=== PATIENT | male | born 1955 | race Caucasian/White ===

== ENCOUNTER 2017-11-17 10:37 | Inpatient (IN) | payer OTHER ==
[2017-11-17] MEDS: SODIUM CHLORIDE 0.9% 1L BAG IV* (11:13)
[2017-11-17 11:22] LABS: ADD MAN DIFF? NO
[2017-11-17 11:25] LABS: WHITE BLOOD COUNT 10.7 10^3/ul (4.8-10.8)
[2017-11-17 11:25] LABS: BASOPHILS % 0.1 % (0.0-2.0); HEMATOCRIT 43.6 % (42.0-52.0); HEMOGLOBIN 14.4 g/dl (14.0-18.0); IMMATURE GRANS #M 0.03 10^3/ul; IMMATURE GRANS % (M) 0.3 %; LYMPHOCYTES # 0.7 10^3/ul (0.8-2.9); LYMPHOCYTES % 6.1 % (15.0-51.0); MEAN CORPUSCULAR HEMOGLOBIN 30.6 pg (29.0-33.0); MEAN CORPUSCULAR VOLUME 92.8 fl (82.0-101.0); MEAN PLATELET VOLUME 11.2 fl (7.4-10.4); MONOCYTE # 0.4 10^3/ul (0.3-0.9); NEUTROPHIL # 9.6 10^3/ul (1.6-7.5); NEUTROPHILS % 89.5 % (39.0-77.0); PLATELET COUNT 169 10^3/UL (140-415); RED CELL DISTRIBUTION WIDTH 14.5 % (11.5-14.5)
[2017-11-17] MEDS: SOD CHLORIDE 0.9% 1,000 ML IV ×3 (11:28→17:26)
[2017-11-17 11:48] LABS: LACTIC ACID 2.3 mmol/L (0.5-2.0)
[2017-11-17 11:48] LABS: PROTIME 13.3 Sec (11.9-14.9)
[2017-11-17 11:49] LABS: PARTIAL THROMBOPLASTIN TIME 23.7 Sec (25.0-35.0)
[2017-11-17 11:54] LABS: ALANINE AMINOTRANSFERASE 41 IU/L (13-69); ALBUMIN 4.1 g/dl (3.3-4.9); ALBUMIN/GLOBULIN RATIO 1.32; ALKALINE PHOSPHATASE 67 IU/L (42-121); ANION GAP 15 (8-16); ASPARTATE AMINO TRANSFERASE 129 IU/L (15-46); BILIRUBIN,INDIRECT 1.4 mg/dl (0-1.1); BILIRUBIN,TOTAL 1.4 mg/dl (0.2-1.3); BLOOD UREA NITROGEN 29 mg/dl (7-20); CALCIUM 9.2 mg/dl (8.4-10.2); CARBON DIOXIDE 29 mmol/L (21-31); CHLORIDE 108 mmol/L (97-110); CREATININE 0.72 mg/dl (0.61-1.24); GLUCOSE 130 mg/dl (70-220); POTASSIUM 4.1 mmol/L (3.5-5.1); SODIUM 148 mmol/L (135-144); TOTAL PROTEIN 7.2 g/dl (6.1-8.1)
[2017-11-17 12:01] LABS: ADD UMIC NO; UR ASCORBIC ACID NEGATIVE (NEGATIVE); UR BILIRUBIN (Dip) NEGATIVE (NEGATIVE); UR BLOOD (Dip) NEGATIVE (NEGATIVE); UR CLARITY CLEAR (CLEAR); UR COLOR YELLOW (YELLOW); UR GLUCOSE (Dip) NEGATIVE (NEGATIVE); UR KETONES (Dip) 1+ mg/dL (NEGATIVE); UR LEUKOCYTE ESTERASE (Dip) NEGATIVE Leu/ul (NEGATIVE); UR NITRITE (Dip) NEGATIVE (NEGATIVE); UR SPECIFIC GRAVITY (Dip) 1.026 (1.003-1.030); UR TOTAL PROTEIN (Dip) NEGATIVE (NEGATIVE); UR UROBILINOGEN (Dip) 1+ mg/dL (NEGATIVE)
[2017-11-17 12:05] LABS: TROPONIN-I < 0.010 ng/ml (0.000-0.120)
[2017-11-17 12:06] LABS: ACETAMINOPHEN < 10.0 ug/ml (10.0-30.0); SALICYLATE < 1.0 mg/dl (5.0-30.0)
[2017-11-17 12:07] LABS: ETHANOL < 10.0 mg/dl
[2017-11-17] MEDS: CEFEPIME 2GM/50 ML (PMX) 50 ML IVPB (12:16)
[2017-11-17] MEDS: DIPHTH/TET/ACEL PERTUSS (ADULT) 0.5 ML VIAL IM* (12:17)
[2017-11-17] MEDS: BACITRACIN 0.9 GM OINT TOP (12:17)
[2017-11-17 12:22] LABS: AMPHETAMINE/METHAMPHETAMINE Negative (NEGATIVE); BARBITURATES Negative (NEGATIVE); BENZODIAZEPINES Negative (NEGATIVE); CANNABINOIDS Negative (NEGATIVE); COCAINE Negative (NEGATIVE); OPIATES Negative (NEGATIVE)
[2017-11-17 12:45] LABS: CREATINE KINASE 4697 IU/L (23-200)
[2017-11-17] MEDS: VANCOMYCIN 1 GM (PMX) 250 ML IVPB (13:13)
[2017-11-17] MEDS ORDERED: ONDANSETRON 4 MG INJ IV ×2 (13:30→15:00)
[2017-11-17] MEDS ORDERED: ACETAMINOPHEN 325 MG TAB PO ×2 (13:30→15:00)
[2017-11-17 13:52] LABS: LACTIC ACID 3.4 mmol/L (0.5-2.0)
[2017-11-17] MEDS ORDERED: NA PHOSPHATE/BIPHOS 133 ML ENEMA PR (15:00)
[2017-11-17] MEDS ORDERED: hydrALAzine 20 MG INJ IV (15:00)
[2017-11-17] MEDS ORDERED: NACL 0.9% 3 ML SYG IV (15:00)
[2017-11-17] MEDS ORDERED: ALBUTEROL/IPRATROPIUM (NEB) 3 ML AMP HHN (15:00)
[2017-11-17] MEDS ORDERED: NITROGLYCERIN (SL) 0.4 MG TAB SL (15:00)
[2017-11-17] MEDS ORDERED: morphine 2 MG INJ IV (15:00)
[2017-11-17 17:04] LABS: LACTIC ACID 1.9 mmol/L (0.5-2.0)
[2017-11-17 17:33] LABS: FREE T4 (FREE THYROXINE) 1.32 ng/dl (0.78-2.44)
[2017-11-17 19:28] LABS: LACTIC ACID 1.4 mmol/L (0.5-2.0)
[2017-11-17] MEDS: CARBIDOPA/LEVODOPA 50-200 (CR) TAB PO (20:40)
[2017-11-17] MEDS: DIPYRIDAMOLE/ASPIRIN (SR) CAP PO (20:40)
[2017-11-17] MEDS: HEPARIN 5,000 UNIT/0.5 ML VIAL SC (20:47)
[2017-11-17 21:09] LABS: LACTIC ACID 1.1 mmol/L (0.5-2.0)
[2017-11-17 23:39] LABS: LACTIC ACID 0.9 mmol/L (0.5-2.0)
[2017-11-17] MEDS ORDERED: GLUCOSE GEL 15 GRAM TUBE BUCCAL (23:45)
[2017-11-17] MEDS ORDERED: DEXTROSE 50% 50 ML SYRINGE IV ×2 (23:45)
[2017-11-17] MEDS ORDERED: GLUCAGON 1 MG INJ IM (23:45)
[2017-11-17] MEDS ORDERED: GLUCOSE GEL 15 GRAM TUBE PO ×2 (23:45)
[2017-11-18] MEDS: DEXTROSE 5%-0.45% NACL 1,000 ML IV ×3 (00:30→19:30)
[2017-11-18] MEDS: INSULIN ASPART [NOVOLOG] 3 ML PEN SC ×6 (00:33→21:00)
[2017-11-18] MEDS: ACCU-CHEK XX (02:50)
[2017-11-18 04:41] LABS: LACTIC ACID 1.7 mmol/L (0.5-2.0)
[2017-11-18 06:44] LABS: ADD MAN DIFF? NO
[2017-11-18 06:48] LABS: WHITE BLOOD COUNT 8.3 10^3/ul (4.8-10.8)
[2017-11-18 06:48] LABS: BASOPHILS % 0.4 % (0.0-2.0); EOSINOPHILS % 0.1 % (0.0-7.0); HEMATOCRIT 38.7 % (42.0-52.0); HEMOGLOBIN 12.8 g/dl (14.0-18.0); IMMATURE GRANS #M 0.02 10^3/ul; IMMATURE GRANS % (M) 0.2 %; LYMPHOCYTES # 0.9 10^3/ul (0.8-2.9); LYMPHOCYTES % 10.8 % (15.0-51.0); MEAN CORPUSCULAR HEMOGLOBIN 31.5 pg (29.0-33.0); MEAN CORPUSCULAR HGB CONC 33.1 g/dl (32.0-37.0); MEAN CORPUSCULAR VOLUME 95.3 fl (82.0-101.0); MEAN PLATELET VOLUME 11.4 fl (7.4-10.4); MONOCYTE # 0.4 10^3/ul (0.3-0.9); MONOCYTES % 4.2 % (0.0-11.0); NEUTROPHILS % 84.3 % (39.0-77.0); PLATELET COUNT 155 10^3/UL (140-415); RED BLOOD COUNT 4.06 10^6/ul (4.70-6.10); RED CELL DISTRIBUTION WIDTH 14.7 % (11.5-14.5)
[2017-11-18 07:05] LABS: LACTIC ACID 1.1 mmol/L (0.5-2.0)
[2017-11-18 07:11] LABS: ANION GAP 9 (8-16); BLOOD UREA NITROGEN 20 mg/dl (7-20); CALCIUM 7.6 mg/dl (8.4-10.2); CARBON DIOXIDE 27 mmol/L (21-31); CHLORIDE 113 mmol/L (97-110); CHOL/HDL RATIO 1.9 RATIO; CREATININE 0.57 mg/dl (0.61-1.24); GLUCOSE 167 mg/dl (70-220); HDL CHOLESTEROL 43 mg/dl (30-78); LDL CHOLESTEROL,CALCULATED 29 mg/dl; PHOSPHORUS 2.6 mg/dl (2.5-4.9); SODIUM 146 mmol/L (135-144); TRIGLYCERIDES 57 mg/dl (0-149)
[2017-11-18 07:11] LABS: CHOLESTEROL 83 mg/dl (100-200)
[2017-11-18 07:34] LABS: CREATINE KINASE 2874 IU/L (23-200)
[2017-11-18 07:48] LABS: HEMOGLOBIN A1C 5.8 % (0-5.9)
[2017-11-18 11:43] LABS: LACTIC ACID 1.4 mmol/L (0.5-2.0)
[2017-11-18] MEDS: DIPYRIDAMOLE/ASPIRIN (SR) CAP PO ×2 (12:11→21:42)
[2017-11-18] MEDS: CARBIDOPA/LEVODOPA 50-200 (CR) TAB PO ×3 (12:11→21:42)
[2017-11-18] MEDS: HEPARIN 5,000 UNIT/0.5 ML VIAL SC ×2 (12:41→21:58)
[2017-11-18] MEDS: MAGNESIUM SULFATE 4 GM/100 ML 100 ML IVPB (14:06)
[2017-11-18] MEDS: POTASSIUM CHLORIDE 100 ML IVPB ×4 (14:06→21:41)
[2017-11-19] MEDS: ACCU-CHEK XX (01:23)
[2017-11-19] MEDS: DEXTROSE 5%-0.45% NACL 1,000 ML IV ×2 (05:32→15:41)
[2017-11-19 06:46] LABS: ADD MAN DIFF? NO
[2017-11-19 06:54] LABS: BASOPHILS % 0.3 % (0.0-2.0); EOSINOPHILS % 0.4 % (0.0-7.0); HEMATOCRIT 38.9 % (42.0-52.0); IMMATURE GRANS #M 0.02 10^3/ul; IMMATURE GRANS % (M) 0.3 %; LYMPHOCYTES # 1.1 10^3/ul (0.8-2.9); LYMPHOCYTES % 14.7 % (15.0-51.0); MEAN CORPUSCULAR HEMOGLOBIN 31.7 pg (29.0-33.0); MEAN CORPUSCULAR HGB CONC 33.4 g/dl (32.0-37.0); MEAN CORPUSCULAR VOLUME 94.9 fl (82.0-101.0); MEAN PLATELET VOLUME 12.2 fl (7.4-10.4); MONOCYTE # 0.3 10^3/ul (0.3-0.9); MONOCYTES % 4.2 % (0.0-11.0); NEUTROPHIL # 5.9 10^3/ul (1.6-7.5); NEUTROPHILS % 80.1 % (39.0-77.0); PLATELET COUNT 144 10^3/UL (140-415); RED CELL DISTRIBUTION WIDTH 14.7 % (11.5-14.5)
[2017-11-19 06:54] LABS: WHITE BLOOD COUNT 7.4 10^3/ul (4.8-10.8)
[2017-11-19] MEDS: Insulin NOVOLOG SS MILD Algorithm (SS with meals and bedtime) SC ×4 (07:25→20:27)
[2017-11-19 07:30] LABS: ANION GAP 10 (8-16); BLOOD UREA NITROGEN 12 mg/dl (7-20); CALCIUM 8.1 mg/dl (8.4-10.2); CARBON DIOXIDE 28 mmol/L (21-31); CHLORIDE 110 mmol/L (97-110); CREATININE 0.48 mg/dl (0.61-1.24); GLUCOSE 131 mg/dl (70-220); POTASSIUM 3.8 mmol/L (3.5-5.1); SODIUM 144 mmol/L (135-144)
[2017-11-19] MEDS: CARBIDOPA/LEVODOPA 50-200 (CR) TAB PO ×3 (08:48→20:22)
[2017-11-19] MEDS: HEPARIN 5,000 UNIT/0.5 ML VIAL SC (09:00)
[2017-11-19] MEDS: DIPYRIDAMOLE/ASPIRIN (SR) CAP PO (09:00)
[2017-11-19] MEDS: HYDROCODONE/APAP (5/325) TAB PO (10:47)
[2017-11-19] MEDS: LORAZEPAM 2 MG INJ IV (15:41)
[2017-11-19 17:54] LABS: CREATINE KINASE 1505 IU/L (23-200)
[2017-11-20] MEDS: ACCU-CHEK XX (02:00)
[2017-11-20] MEDS: DEXTROSE 5%-0.45% NACL 1,000 ML IV ×2 (02:17→12:03)
[2017-11-20 07:24] LABS: ADD MAN DIFF? NO
[2017-11-20] MEDS: Insulin NOVOLOG SS MILD Algorithm (SS with meals and bedtime) SC ×4 (07:25→20:33)
[2017-11-20 07:32] LABS: BASOPHILS % 0.1 % (0.0-2.0); EOSINOPHILS % 0.1 % (0.0-7.0); HEMATOCRIT 40.5 % (42.0-52.0); HEMOGLOBIN 13.4 g/dl (14.0-18.0); LYMPHOCYTES % 9.9 % (15.0-51.0); MEAN CORPUSCULAR HEMOGLOBIN 30.8 pg (29.0-33.0); MEAN CORPUSCULAR HGB CONC 33.1 g/dl (32.0-37.0); MEAN CORPUSCULAR VOLUME 93.1 fl (82.0-101.0); MEAN PLATELET VOLUME 11.7 fl (7.4-10.4); MONOCYTE # 0.4 10^3/ul (0.3-0.9); MONOCYTES % 3.6 % (0.0-11.0); NEUTROPHIL # 8.9 10^3/ul (1.6-7.5); NEUTROPHILS % 85.9 % (39.0-77.0); PLATELET COUNT 166 10^3/UL (140-415); RED BLOOD COUNT 4.35 10^6/ul (4.70-6.10); RED CELL DISTRIBUTION WIDTH 14.1 % (11.5-14.5)
[2017-11-20 07:32] LABS: WHITE BLOOD COUNT 10.4 10^3/ul (4.8-10.8)
[2017-11-20] MEDS: CARBIDOPA/LEVODOPA 50-200 (CR) TAB PO ×3 (07:41→20:23)
[2017-11-20 07:54] LABS: ANION GAP 9 (8-16); BLOOD UREA NITROGEN 4 mg/dl (7-20); CALCIUM 8.3 mg/dl (8.4-10.2); CARBON DIOXIDE 29 mmol/L (21-31); CHLORIDE 107 mmol/L (97-110); CREATININE 0.49 mg/dl (0.61-1.24); GLUCOSE 120 mg/dl (70-220); POTASSIUM 3.4 mmol/L (3.5-5.1); SODIUM 142 mmol/L (135-144)
[2017-11-20] MEDS: MAGNESIUM SULFATE 4 GM/100 ML 100 ML IVPB (10:42)
[2017-11-20] MEDS: POTASSIUM CHLORIDE 20 MEQ POWDER FOR ORAL SOLN PO (10:42)
[2017-11-20 11:46] LABS: CREATINE KINASE 828 IU/L (23-200)
[2017-11-20 11:51] LABS: AMMONIA < 9 umol/l (9-30)
[2017-11-20 12:53] LABS: FOLATE 7.9 ng/ml (2.8-20.0)
[2017-11-20] MEDS ORDERED: morphine LIQ (10 MG/5 ML) CUP PO (17:30)
[2017-11-20 21:47] LABS: RAPID PLASMA REAGIN NONREACTIVE (NR)
[2017-11-21] MEDS: DEXTROSE 5%-0.45% NACL 1,000 ML IV ×2 (00:21→07:26)
[2017-11-21] MEDS: ACCU-CHEK XX (02:15)
[2017-11-21] MEDS: Insulin NOVOLOG SS MILD Algorithm (SS with meals and bedtime) SC ×4 (07:25→20:20)
[2017-11-21] MEDS: DOCUSATE SODIUM 100 MG CAP PO (07:26)
[2017-11-21] MEDS: CARBIDOPA/LEVODOPA 50-200 (CR) TAB PO ×3 (07:26→20:17)
[2017-11-21] MEDS: MAGNESIUM HYDROXIDE 30ML CUP PO (07:26)
[2017-11-21 07:35] LABS: CREATINE KINASE 516 IU/L (23-200)
[2017-11-21 07:40] LABS: ANION GAP 8 (8-16); BLOOD UREA NITROGEN 6 mg/dl (7-20); CALCIUM 8.7 mg/dl (8.4-10.2); CARBON DIOXIDE 32 mmol/L (21-31); CHLORIDE 107 mmol/L (97-110); CREATININE 0.46 mg/dl (0.61-1.24); GLUCOSE 118 mg/dl (70-220); SODIUM 143 mmol/L (135-144)
[2017-11-21 07:41] LABS: MAGNESIUM 1.4 mg/dl (1.7-2.5)
[2017-11-21] MEDS: MAGNESIUM SULFATE 4 GM/100 ML 100 ML IVPB (10:40)
== END 2017-11-21 21:30 | disposition home or self-care (01) | DRG 557 ==
LOC: E/R 10:37 → TEL 13:13
DX: M62.82 Rhabdomyolysis (principal); G93.49 Other encephalopathy; R64 Cachexia; E87.0 Hyperosmolality and hypernatremia; E86.0 Dehydration; Z68.20 Body mass index [BMI] 20.0-20.9, adult; E11.9 Type 2 diabetes mellitus without complications; I10 Essential (primary) hypertension; Z86.73 Personal history of transient ischemic attack (TIA), and cerebral infarction without residual deficits; G20 Parkinson's disease; F02.80 Dementia in other diseases classified elsewhere, unspecified severity, without behavioral disturbance, psychotic disturbance, mood disturbance, and anxiety
CPT/HCPCS: 36415; 70450; 70551; 71045; 80048; 80053; 80061; 80307; 81003; 82140; 82550; 82553; 82607; 82746; 82962; 83036; 83605; 83735; 84100; 84439; 84443; 84484; 85025; 85610; 85730; 86592; 87040; 87086; 90471; 90715; 92526; 92610; 93005; 93306; 93880; 96365; 96375; 97110; 97162; 97166; 97530; 97535; 99291-25

== ENCOUNTER 2018-08-08 04:20 | Inpatient (IN) | payer OTHER ==
[2018-08-08 05:18] LABS: ADD MAN DIFF? NO
[2018-08-08 05:19] LABS: BASOPHILS % 0.1 % (0.0-2.0); EOSINOPHILS % 0.1 % (0.0-7.0); HEMATOCRIT 39.1 % (42.0-52.0); HEMOGLOBIN 12.5 g/dl (14.0-18.0); LYMPHOCYTES # 1.3 10^3/ul (0.8-2.9); LYMPHOCYTES % 15.7 % (15.0-51.0); MEAN CORPUSCULAR HEMOGLOBIN 28.8 pg (29.0-33.0); MEAN CORPUSCULAR VOLUME 90.1 fl (82.0-101.0); MEAN PLATELET VOLUME 11.1 fl (7.4-10.4); MONOCYTE # 0.4 10^3/ul (0.3-0.9); MONOCYTES % 4.9 % (0.0-11.0); NEUTROPHIL # 6.4 10^3/ul (1.6-7.5); PLATELET COUNT 174 10^3/UL (140-415); RED BLOOD COUNT 4.34 10^6/ul (4.70-6.10); RED CELL DISTRIBUTION WIDTH 14.9 % (11.5-14.5)
[2018-08-08] MEDS: SOD CHLORIDE 0.9% 1,000 ML IV ×2 (05:20→05:59)
[2018-08-08 05:37] LABS: CREATINE KINASE 311 IU/L (23-200)
[2018-08-08 05:40] LABS: ALANINE AMINOTRANSFERASE 23 IU/L (13-69); ALBUMIN 3.4 g/dl (3.3-4.9); ALBUMIN/GLOBULIN RATIO 1.25; ALKALINE PHOSPHATASE 100 IU/L (42-121); ANION GAP 9 (5-13); ASPARTATE AMINO TRANSFERASE 20 IU/L (15-46); BLOOD UREA NITROGEN 23 mg/dl (7-20); CALCIUM 9.2 mg/dl (8.4-10.2); CARBON DIOXIDE 23 mmol/L (21-31); CHLORIDE 112 mmol/L (97-110); CREATININE 1.21 mg/dl (0.61-1.24); Estimated GFR > 60 mL/min (>60); GLUCOSE 137 mg/dl (70-220); LIPASE 72 U/L (23-300); POTASSIUM 4.1 mmol/L (3.5-5.1); SODIUM 144 mmol/L (135-144); TOTAL PROTEIN 6.1 g/dl (6.1-8.1)
[2018-08-08 05:50] LABS: TROPONIN-I < 0.012 ng/ml (0.000-0.120)
[2018-08-08 05:59] LABS: ETHANOL < 10.0 mg/dl (0-0)
[2018-08-08] MEDS ORDERED: ALBUTEROL/IPRATROPIUM (NEB) 3 ML AMP HHN (06:30)
[2018-08-08] MEDS ORDERED: ONDANSETRON 4 MG INJ IV (06:30)
[2018-08-08] MEDS ORDERED: NACL 0.9% 3 ML SYG IV (06:30)
[2018-08-08 07:05] LABS: CREATINE KINASE 432 IU/L (23-200)
[2018-08-08] MEDS: SOD CHLORIDE 0.9% 500 ML IV (07:16)
[2018-08-08 07:17] LABS: CK INDEX 2.2; TROPONIN-I < 0.012 ng/ml (0.000-0.120)
[2018-08-08 07:18] LABS: CK-MB 9.36 ng/ml (0.0-2.4)
[2018-08-08 07:30] LABS: ADD UMIC NO; UR ASCORBIC ACID NEGATIVE (NEGATIVE); UR BILIRUBIN (Dip) NEGATIVE (NEGATIVE); UR BLOOD (Dip) NEGATIVE (NEGATIVE); UR CLARITY SLIGHTLY CLOUDY (CLEAR); UR COLOR YELLOW (YELLOW); UR GLUCOSE (Dip) 2+ mg/dL (NEGATIVE); UR KETONES (Dip) TRACE mg/dL (NEGATIVE); UR LEUKOCYTE ESTERASE (Dip) NEGATIVE Leu/ul (NEGATIVE); UR NITRITE (Dip) NEGATIVE (NEGATIVE); UR RBC 1 /HPF (0-5); UR SPECIFIC GRAVITY (Dip) 1.018 (1.003-1.030); UR TOTAL PROTEIN (Dip) NEGATIVE (NEGATIVE); UR UROBILINOGEN (Dip) 1+ mg/dL (NEGATIVE); UR WBC 1 /HPF (0-5)
[2018-08-08] MEDS ORDERED: NORepinephrine 8MG/250 ML (PMX 250 ML IV (07:30)
[2018-08-08] MEDS: metFORMIN 500 MG TAB PO ×2 (08:00→17:29)
[2018-08-08] MEDS: PRAMIPEXOLE 1 MG TAB PO ×3 (08:33→22:03)
[2018-08-08] MEDS: DIPYRIDAMOLE/ASPIRIN (SR) CAP PO ×2 (08:33→22:03)
[2018-08-08] MEDS: GABAPENTIN 300 MG CAP PO ×2 (08:33→22:04)
[2018-08-08] MEDS: BACLOFEN 10 MG TAB PO ×4 (08:34→22:03)
[2018-08-08] MEDS: HEPARIN 5,000 UNIT/1 ML VIAL SC ×2 (08:37→22:24)
[2018-08-08] MEDS: MIDODRINE 5 MG TAB PO ×3 (08:47→17:28)
[2018-08-08] MEDS: BENAZEPRIL 20 MG TAB PO (09:00)
[2018-08-08] MEDS: FUROSEMIDE 20 MG TAB PO (09:00)
[2018-08-08] MEDS: CARBIDOPA/LEVODOPA 50-200 (CR) TAB PO ×3 (09:15→21:00)
[2018-08-08 14:35] LABS: CREATINE KINASE 2162 IU/L (23-200)
[2018-08-08 14:40] LABS: CK INDEX 0.9; TROPONIN-I 0.054 ng/ml (0.000-0.120)
[2018-08-08] MEDS: ATORVASTATIN 40 MG TAB PO (22:04)
[2018-08-09 06:08] LABS: ADD MAN DIFF? NO
[2018-08-09 06:23] LABS: WHITE BLOOD COUNT 9.9 10^3/ul (4.8-10.8)
[2018-08-09 06:23] LABS: BASOPHILS % 0.3 % (0.0-2.0); EOSINOPHILS % 0.3 % (0.0-7.0); HEMATOCRIT 35.8 % (42.0-52.0); LYMPHOCYTES # 1.7 10^3/ul (0.8-2.9); LYMPHOCYTES % 17.3 % (15.0-51.0); MEAN CORPUSCULAR HEMOGLOBIN 29.1 pg (29.0-33.0); MEAN CORPUSCULAR HGB CONC 33.5 g/dl (32.0-37.0); MEAN CORPUSCULAR VOLUME 86.9 fl (82.0-101.0); MEAN PLATELET VOLUME 11.9 fl (7.4-10.4); MONOCYTE # 0.5 10^3/ul (0.3-0.9); MONOCYTES % 4.8 % (0.0-11.0); NEUTROPHIL # 7.6 10^3/ul (1.6-7.5); NEUTROPHILS % 76.9 % (39.0-77.0); PLATELET COUNT 170 10^3/UL (140-415); RED BLOOD COUNT 4.12 10^6/ul (4.70-6.10); RED CELL DISTRIBUTION WIDTH 14.8 % (11.5-14.5)
[2018-08-09 06:45] LABS: ALANINE AMINOTRANSFERASE 18 IU/L (13-69); ALBUMIN 2.7 g/dl (3.3-4.9); ALBUMIN/GLOBULIN RATIO 1.08; ALKALINE PHOSPHATASE 83 IU/L (42-121); ANION GAP 5 (5-13); ASPARTATE AMINO TRANSFERASE 55 IU/L (15-46); BILIRUBIN,INDIRECT 1.1 mg/dl (0-1.1); BILIRUBIN,TOTAL 1.1 mg/dl (0.2-1.3); BLOOD UREA NITROGEN 11 mg/dl (7-20); CALCIUM 8.5 mg/dl (8.4-10.2); CARBON DIOXIDE 26 mmol/L (21-31); CHLORIDE 109 mmol/L (97-110); CHOL/HDL RATIO 3.1 RATIO; CHOLESTEROL 88 mg/dl (100-200); CREATININE 0.51 mg/dl (0.61-1.24); Estimated GFR > 60 mL/min (>60); GLUCOSE 110 mg/dl (70-220); HDL CHOLESTEROL 28 mg/dl (30-78); LDL CHOLESTEROL,CALCULATED 40 mg/dl; MAGNESIUM 1.3 mg/dl (1.7-2.5); POTASSIUM 3.5 mmol/L (3.5-5.1); SODIUM 140 mmol/L (135-144); TOTAL PROTEIN 5.2 g/dl (6.1-8.1); TRIGLYCERIDES 98 mg/dl (0-149)
[2018-08-09 07:13] LABS: HEMOGLOBIN A1C 7.2 % (0-5.9)
[2018-08-09] MEDS: MIDODRINE 5 MG TAB PO ×3 (07:44→17:46)
[2018-08-09] MEDS: PRAMIPEXOLE 1 MG TAB PO ×3 (08:49→21:17)
[2018-08-09] MEDS: DIPYRIDAMOLE/ASPIRIN (SR) CAP PO ×2 (08:49→21:17)
[2018-08-09] MEDS: CARBIDOPA/LEVODOPA 50-200 (CR) TAB PO ×3 (08:51→21:20)
[2018-08-09] MEDS: BACLOFEN 10 MG TAB PO ×4 (08:51→21:17)
[2018-08-09] MEDS: GABAPENTIN 300 MG CAP PO ×2 (08:51→21:17)
[2018-08-09] MEDS: BENAZEPRIL 20 MG TAB PO (08:52)
[2018-08-09] MEDS: FUROSEMIDE 20 MG TAB PO (08:53)
[2018-08-09] MEDS: HEPARIN 5,000 UNIT/1 ML VIAL SC ×2 (08:56→21:44)
[2018-08-09] MEDS: metFORMIN 500 MG TAB PO ×2 (08:57→17:45)
[2018-08-09] MEDS: MAGNESIUM SULFATE 2 GM/50 ML 50 ML IVPB (11:30)
[2018-08-09] MEDS: clonAZEPAM 0.5 MG TAB PO (14:34)
[2018-08-09 17:48] LABS: AMPHETAMINE/METHAMPHETAMINE Negative (NEGATIVE); BARBITURATES Negative (NEGATIVE); BENZODIAZEPINES Negative (NEGATIVE); CANNABINOIDS Negative (NEGATIVE); COCAINE Negative (NEGATIVE); OPIATES Negative (NEGATIVE)
[2018-08-09] MEDS: ATORVASTATIN 40 MG TAB PO (21:17)
[2018-08-10] MEDS: MIDODRINE 5 MG TAB PO ×2 (05:26→21:00)
[2018-08-10] MEDS: metFORMIN 500 MG TAB PO (08:27)
[2018-08-10] MEDS: PRAMIPEXOLE 1 MG TAB PO ×3 (09:03→20:59)
[2018-08-10] MEDS: DIPYRIDAMOLE/ASPIRIN (SR) CAP PO ×2 (09:03→20:59)
[2018-08-10] MEDS: GABAPENTIN 300 MG CAP PO ×2 (09:03→20:59)
[2018-08-10] MEDS: CARBIDOPA/LEVODOPA 50-200 (CR) TAB PO (09:03)
[2018-08-10] MEDS: BENAZEPRIL 20 MG TAB PO (09:04)
[2018-08-10] MEDS: BACLOFEN 10 MG TAB PO ×2 (09:04→20:59)
[2018-08-10] MEDS: FUROSEMIDE 20 MG TAB PO (09:04)
[2018-08-10] MEDS: HEPARIN 5,000 UNIT/1 ML VIAL SC ×2 (09:15→21:07)
[2018-08-10] MEDS ORDERED: DEXTROSE 50% 50 ML SYRINGE IV ×2 (13:00)
[2018-08-10] MEDS ORDERED: GLUCAGON 1 MG INJ IM (13:00)
[2018-08-10] MEDS ORDERED: GLUCOSE GEL 15 GRAM TUBE BUCCAL (13:00)
[2018-08-10] MEDS ORDERED: GLUCOSE GEL 15 GRAM TUBE PO ×2 (13:00)
[2018-08-10] MEDS: SOD CHLORIDE 0.9% 1,000 ML IV (13:31)
[2018-08-10] MEDS: ALBUMIN HUMAN 25% 100 ML IV (13:33)
[2018-08-10] MEDS: DEXAMETHASONE 4 MG/ML 1 ML INJ IV (13:33)
[2018-08-10] MEDS: INSULIN ASPART [NOVOLOG] 3 ML PEN SC (17:42)
[2018-08-10] MEDS: ATORVASTATIN 40 MG TAB PO (20:59)
[2018-08-10] MEDS: INSULIN GLARGINE [LANTus] (100 UNITS/ML) SYG SC (21:06)
[2018-08-11] MEDS: SOD CHLORIDE 0.9% 1,000 ML IV ×2 (00:30→13:16)
[2018-08-11] MEDS: INSULIN ASPART [NOVOLOG] 3 ML PEN SC ×3 (08:09→17:22)
[2018-08-11] MEDS: GABAPENTIN 300 MG CAP PO ×2 (08:30→20:28)
[2018-08-11] MEDS: BACLOFEN 10 MG TAB PO ×2 (08:31→20:28)
[2018-08-11] MEDS: PRAMIPEXOLE 1 MG TAB PO ×3 (08:31→20:28)
[2018-08-11] MEDS: MIDODRINE 5 MG TAB PO (08:31)
[2018-08-11] MEDS: DIPYRIDAMOLE/ASPIRIN (SR) CAP PO ×2 (08:31→20:28)
[2018-08-11] MEDS: BENAZEPRIL 20 MG TAB PO (08:31)
[2018-08-11] MEDS: HEPARIN 5,000 UNIT/1 ML VIAL SC ×2 (08:53→20:46)
[2018-08-11 12:02] LABS: MAGNESIUM 1.2 mg/dl (1.7-2.5)
[2018-08-11] MEDS: MAGNESIUM SULFATE 3 GM in DEXTROSE 5% 100 ML IVPB (16:19)
[2018-08-11] MEDS: ATORVASTATIN 40 MG TAB PO (20:28)
[2018-08-11] MEDS: INSULIN GLARGINE [LANTus] (100 UNITS/ML) SYG SC (20:53)
[2018-08-12] MEDS: SOD CHLORIDE 0.9% 1,000 ML IV ×3 (02:42→22:26)
[2018-08-12 05:52] LABS: ADD MAN DIFF? NO
[2018-08-12 05:56] LABS: WHITE BLOOD COUNT 7.2 10^3/ul (4.8-10.8)
[2018-08-12 05:56] LABS: BASOPHILS % 0.3 % (0.0-2.0); EOSINOPHILS # 0.1 10^3/ul (0.0-0.5); HEMOGLOBIN 11.8 g/dl (14.0-18.0); LYMPHOCYTES # 1.6 10^3/ul (0.8-2.9); LYMPHOCYTES % 22.2 % (15.0-51.0); MEAN CORPUSCULAR HEMOGLOBIN 28.6 pg (29.0-33.0); MEAN CORPUSCULAR HGB CONC 32.8 g/dl (32.0-37.0); MEAN CORPUSCULAR VOLUME 87.4 fl (82.0-101.0); MEAN PLATELET VOLUME 11.5 fl (7.4-10.4); MONOCYTE # 0.4 10^3/ul (0.3-0.9); MONOCYTES % 5.7 % (0.0-11.0); NEUTROPHIL # 5.1 10^3/ul (1.6-7.5); NEUTROPHILS % 70.7 % (39.0-77.0); PLATELET COUNT 144 10^3/UL (140-415); RED BLOOD COUNT 4.12 10^6/ul (4.70-6.10); RED CELL DISTRIBUTION WIDTH 14.6 % (11.5-14.5)
[2018-08-12 06:18] LABS: ANION GAP 4 (5-13); BLOOD UREA NITROGEN 17 mg/dl (7-20); CALCIUM 8.7 mg/dl (8.4-10.2); CARBON DIOXIDE 28 mmol/L (21-31); CHLORIDE 108 mmol/L (97-110); CREATININE 0.64 mg/dl (0.61-1.24); Estimated GFR > 60 mL/min (>60); GLUCOSE 98 mg/dl (70-220); SODIUM 140 mmol/L (135-144)
[2018-08-12 06:18] LABS: CREATINE KINASE 669 IU/L (23-200)
[2018-08-12] MEDS: INSULIN ASPART [NOVOLOG] 3 ML PEN SC ×3 (08:00→18:00)
[2018-08-12] MEDS: HEPARIN 5,000 UNIT/1 ML VIAL SC (09:00)
[2018-08-12] MEDS: DIPYRIDAMOLE/ASPIRIN (SR) CAP PO ×2 (09:00→21:00)
[2018-08-12] MEDS: GABAPENTIN 300 MG CAP PO ×2 (09:36→21:00)
[2018-08-12] MEDS: PRAMIPEXOLE 1 MG TAB PO ×3 (09:36→21:00)
[2018-08-12] MEDS: BACLOFEN 10 MG TAB PO ×2 (09:36→21:00)
[2018-08-12] MEDS ORDERED: DEXAMETHASONE 4 MG/ML 5 ML INJ (17:05)
[2018-08-12] MEDS ORDERED: ONDANSETRON 4 MG INJ (17:05)
[2018-08-12] MEDS ORDERED: ROCURONIUM 50 MG INJ ×2 (17:05→18:57)
[2018-08-12] MEDS ORDERED: NEOSTIGMINE 3 MG/3 ML SYRINGE ×2 (17:05→20:32)
[2018-08-12] MEDS ORDERED: CEFAZOLIN 1 GM INJ ×2 (17:05→18:15)
[2018-08-12] MEDS ORDERED: GLYCOPYRROLATE 0.4 MG INJ ×2 (17:05→20:33)
[2018-08-12] MEDS ORDERED: PROPOFOL 20 ML (17:05)
[2018-08-12] MEDS ORDERED: FENTAnyl 50 MCG/ML VIAL (17:05)
[2018-08-12] MEDS ORDERED: MIDAZOLAM 1 MG/ML 2 ML INJ (17:05)
[2018-08-12 17:06] LABS: INR 1.05; PROTIME 13.8 Sec (11.9-14.9); PT RATIO 1.1
[2018-08-12 17:07] LABS: PARTIAL THROMBOPLASTIN TIME 28.8 Sec (23.0-35.0)
[2018-08-12] MEDS ORDERED: POVIDONE IODINE 10% 28.4 GM OINT (17:50)
[2018-08-12] MEDS ORDERED: LIDOCAINE 2% (SDV) 5 ML INJ (17:50)
[2018-08-12] MEDS ORDERED: ETOMIDATE 20 MG INJ (17:51)
[2018-08-12] MEDS ORDERED: EPHEDrine 25 MG/5 ML SYG (18:58)
[2018-08-12] MEDS ORDERED: PHENYLephrine (100 MCG/ML) 10ML SYG (18:58)
[2018-08-12] MEDS ORDERED: FAMOTIDINE 20 MG INJ (18:59)
[2018-08-12] MEDS ORDERED: POLYMYXIN/BACITRACIN 1L IRRIG (19:03)
[2018-08-12] MEDS ORDERED: DEXTROSE 50% 50 ML SYRINGE (19:27)
[2018-08-12] MEDS: POLYMYXIN/BACITRACIN 1L IRRIG IRR ×2 (19:44→20:30)
[2018-08-12] MEDS: INSULIN GLARGINE [LANTus] (100 UNITS/ML) SYG SC (20:00)
[2018-08-12] MEDS ORDERED: FENTAnyl 50 MCG/ML VIAL IV ×2 (20:00→22:30)
[2018-08-12] MEDS ORDERED: HYDROmorphONE 0.5 MG/0.5 ML SYG IV ×3 (20:00)
[2018-08-12] MEDS ORDERED: ONDANSETRON 4 MG INJ IV (20:00)
[2018-08-12] MEDS ORDERED: EPHEDrine SULFATE 50 MG/5 ML SYG IV (20:00)
[2018-08-12] MEDS ORDERED: HYDROmorphONE 2 MG/ML SYG (20:39)
[2018-08-12] MEDS: ATORVASTATIN 40 MG TAB PO (21:00)
[2018-08-12] MEDS: CEFAZOLIN 1 GM/50 ML (PMX) 50 ML IVPB (22:26)
[2018-08-13 05:21] LABS: ADD MAN DIFF? NO
[2018-08-13 05:32] LABS: WHITE BLOOD COUNT 7.6 10^3/ul (4.8-10.8)
[2018-08-13 05:32] LABS: BASOPHILS % 0.1 % (0.0-2.0); HEMATOCRIT 35.9 % (42.0-52.0); HEMOGLOBIN 11.6 g/dl (14.0-18.0); LYMPHOCYTES # 0.7 10^3/ul (0.8-2.9); LYMPHOCYTES % 9.3 % (15.0-51.0); MEAN CORPUSCULAR HGB CONC 32.3 g/dl (32.0-37.0); MEAN CORPUSCULAR VOLUME 89.8 fl (82.0-101.0); MEAN PLATELET VOLUME 12.9 fl (7.4-10.4); MONOCYTE # 0.3 10^3/ul (0.3-0.9); MONOCYTES % 3.7 % (0.0-11.0); NEUTROPHIL # 6.6 10^3/ul (1.6-7.5); NEUTROPHILS % 86.6 % (39.0-77.0); PLATELET COUNT 128 10^3/UL (140-415); RED CELL DISTRIBUTION WIDTH 14.3 % (11.5-14.5)
[2018-08-13 05:50] LABS: ANION GAP 6 (5-13); BLOOD UREA NITROGEN 14 mg/dl (7-20); CALCIUM 8.1 mg/dl (8.4-10.2); CARBON DIOXIDE 27 mmol/L (21-31); CHLORIDE 108 mmol/L (97-110); CREATININE 0.54 mg/dl (0.61-1.24); Estimated GFR > 60 mL/min (>60); GLUCOSE 131 mg/dl (70-220); POTASSIUM 4.1 mmol/L (3.5-5.1); SODIUM 141 mmol/L (135-144)
[2018-08-13 05:53] LABS: CREATINE KINASE 532 IU/L (23-200)
[2018-08-13] MEDS: CEFAZOLIN 1 GM/50 ML (PMX) 50 ML IVPB ×2 (06:29→13:17)
[2018-08-13] MEDS: PRAMIPEXOLE 1 MG TAB PO ×3 (09:55→20:08)
[2018-08-13] MEDS: BACLOFEN 10 MG TAB PO ×2 (09:55→20:09)
[2018-08-13] MEDS: GABAPENTIN 300 MG CAP PO ×2 (09:56→20:08)
[2018-08-13] MEDS: INSULIN ASPART [NOVOLOG] 3 ML PEN SC ×3 (10:47→17:50)
[2018-08-13] MEDS: SOD CHLORIDE 0.9% 1,000 ML IV (12:43)
[2018-08-13] MEDS: ACETAMINOPHEN 325 MG TAB PO (13:57)
[2018-08-13] MEDS: clonAZEPAM 0.5 MG TAB PO (16:15)
[2018-08-13] MEDS: ATORVASTATIN 40 MG TAB PO (20:08)
[2018-08-13] MEDS: INSULIN GLARGINE [LANTus] (100 UNITS/ML) SYG SC (20:08)
[2018-08-13] MEDS: HEPARIN 5,000 UNIT/1 ML VIAL SC (21:18)
[2018-08-13] MEDS: DIPYRIDAMOLE/ASPIRIN (SR) CAP PO ×3 (21:24→21:37)
[2018-08-14] MEDS: SOD CHLORIDE 0.9% 1,000 ML IV (01:02)
[2018-08-14] MEDS: ACETAMINOPHEN 325 MG TAB PO (01:55)
[2018-08-14] MEDS: morphine 2 MG INJ IV ×2 (02:45→08:17)
[2018-08-14 05:05] LABS: ADD MAN DIFF? NO
[2018-08-14 05:13] LABS: BASOPHILS % 0.1 % (0.0-2.0); EOSINOPHILS % 0.4 % (0.0-7.0); HEMATOCRIT 31.2 % (42.0-52.0); HEMOGLOBIN 10.3 g/dl (14.0-18.0); LYMPHOCYTES # 1.4 10^3/ul (0.8-2.9); LYMPHOCYTES % 17.1 % (15.0-51.0); MEAN CORPUSCULAR HEMOGLOBIN 28.9 pg (29.0-33.0); MEAN CORPUSCULAR VOLUME 87.4 fl (82.0-101.0); MEAN PLATELET VOLUME 12.3 fl (7.4-10.4); MONOCYTE # 0.6 10^3/ul (0.3-0.9); MONOCYTES % 6.9 % (0.0-11.0); NEUTROPHIL # 6.1 10^3/ul (1.6-7.5); PLATELET COUNT 133 10^3/UL (140-415); RED BLOOD COUNT 3.57 10^6/ul (4.70-6.10); RED CELL DISTRIBUTION WIDTH 14.8 % (11.5-14.5)
[2018-08-14 05:13] LABS: WHITE BLOOD COUNT 8.2 10^3/ul (4.8-10.8)
[2018-08-14 05:29] LABS: PHOSPHORUS 2.2 mg/dl (2.5-4.9)
[2018-08-14 05:29] LABS: MAGNESIUM 1.5 mg/dl (1.7-2.5)
[2018-08-14 05:35] LABS: CREATINE KINASE 361 IU/L (23-200)
[2018-08-14 05:40] LABS: ANION GAP 3 (5-13); BLOOD UREA NITROGEN 19 mg/dl (7-20); CALCIUM 7.9 mg/dl (8.4-10.2); CARBON DIOXIDE 27 mmol/L (21-31); CHLORIDE 109 mmol/L (97-110); CREATININE 0.62 mg/dl (0.61-1.24); Estimated GFR > 60 mL/min (>60); GLUCOSE 121 mg/dl (70-220); POTASSIUM 3.9 mmol/L (3.5-5.1); SODIUM 139 mmol/L (135-144)
[2018-08-14] MEDS: MAGNESIUM SULFATE 2 GM/50 ML 50 ML IVPB (08:16)
[2018-08-14] MEDS: INSULIN ASPART [NOVOLOG] 3 ML PEN SC ×5 (08:26→20:47)
[2018-08-14] MEDS: ARTIFICIAL TEARS 15 ML OPH BOTH EYES (08:27)
[2018-08-14] MEDS: BACLOFEN 10 MG TAB PO ×2 (08:47→20:47)
[2018-08-14] MEDS: PRAMIPEXOLE 1 MG TAB PO ×3 (08:48→20:47)
[2018-08-14] MEDS: HEPARIN 5,000 UNIT/1 ML VIAL SC ×2 (08:50→20:49)
[2018-08-14] MEDS: DIPYRIDAMOLE/ASPIRIN (SR) CAP PO (08:50)
[2018-08-14] MEDS: GABAPENTIN 300 MG CAP PO (08:51)
[2018-08-14] MEDS: POTASSIUM PHOSPHATE 15 MM in SOD CHLORIDE 0.9% 250 ML IVPB (09:03)
[2018-08-14] MEDS: ATORVASTATIN 40 MG TAB PO (20:47)
[2018-08-14] MEDS: GABAPENTIN 100 MG CAP PO (20:47)
[2018-08-14] MEDS: INSULIN GLARGINE [LANTus] (100 UNITS/ML) SYG SC (20:51)
[2018-08-15] MEDS: ACCU-CHEK XX (02:00)
[2018-08-15 05:23] LABS: ADD MAN DIFF? NO
[2018-08-15 05:31] LABS: WHITE BLOOD COUNT 14.8 10^3/ul (4.8-10.8)
[2018-08-15 05:31] LABS: BASOPHILS % 0.1 % (0.0-2.0); HEMATOCRIT 33.9 % (42.0-52.0); HEMOGLOBIN 11.4 g/dl (14.0-18.0); LYMPHOCYTES # 0.7 10^3/ul (0.8-2.9); LYMPHOCYTES % 4.6 % (15.0-51.0); MEAN CORPUSCULAR HEMOGLOBIN 29.2 pg (29.0-33.0); MEAN CORPUSCULAR HGB CONC 33.6 g/dl (32.0-37.0); MEAN CORPUSCULAR VOLUME 86.7 fl (82.0-101.0); MEAN PLATELET VOLUME 12.2 fl (7.4-10.4); MONOCYTE # 0.7 10^3/ul (0.3-0.9); MONOCYTES % 4.7 % (0.0-11.0); NEUTROPHIL # 13.3 10^3/ul (1.6-7.5); NEUTROPHILS % 89.9 % (39.0-77.0); PLATELET COUNT 132 10^3/UL (140-415); RED BLOOD COUNT 3.91 10^6/ul (4.70-6.10); RED CELL DISTRIBUTION WIDTH 15.1 % (11.5-14.5)
[2018-08-15] MEDS: ACETAMINOPHEN 325 MG TAB PO (05:34)
[2018-08-15 05:56] LABS: ANION GAP 7 (5-13); BLOOD UREA NITROGEN 14 mg/dl (7-20); CALCIUM 8.4 mg/dl (8.4-10.2); CARBON DIOXIDE 26 mmol/L (21-31); CHLORIDE 103 mmol/L (97-110); CREATININE 0.66 mg/dl (0.61-1.24); Estimated GFR > 60 mL/min (>60); GLUCOSE 121 mg/dl (70-220); MAGNESIUM 1.4 mg/dl (1.7-2.5); PHOSPHORUS 2.4 mg/dl (2.5-4.9); POTASSIUM 3.6 mmol/L (3.5-5.1); SODIUM 136 mmol/L (135-144)
[2018-08-15 05:58] LABS: CREATINE KINASE 399 IU/L (23-200)
[2018-08-15] MEDS: INSULIN ASPART [NOVOLOG] 3 ML PEN SC ×7 (08:00→21:01)
[2018-08-15] MEDS: BACLOFEN 10 MG TAB PO ×2 (08:36→20:54)
[2018-08-15] MEDS: GABAPENTIN 100 MG CAP PO ×3 (08:37→20:51)
[2018-08-15] MEDS: PRAMIPEXOLE 1 MG TAB PO ×3 (08:37→20:52)
[2018-08-15] MEDS: HEPARIN 5,000 UNIT/1 ML VIAL SC ×2 (08:41→20:55)
[2018-08-15] MEDS: SOD CHLORIDE 0.9% 500 ML IV ×2 (10:55→12:00)
[2018-08-15] MEDS: SOD CHLORIDE 0.9% 1,000 ML IV ×3 (10:56→19:04)
[2018-08-15 11:17] LABS: AADO2 Arterial 32.7 mmHg (7.0-24.0); Arterial Base Excess 2.8 mmol/L (-3.0-3); Arterial Blood Gas Oxygen Sat 93.4 mmHG (95.0-98.0); Arterial COHb 0.3 % (0.0-3.0); Arterial Fraction of Oxyhgb 92.9 % (93.0-99.0); Arterial HCO3 26.7 mmol/L (22.0-26.0); Arterial MetHb 0.2 % (0.0-1.5); Arterial pCO2 38.4 mmhg (35-45); MODE ROOM AIR; Site LB
[2018-08-15] MEDS: PIPER-TAZO 3.375 GM IV (PMX) 100 ML IVPB ×2 (11:25→18:58)
[2018-08-15] MEDS ORDERED: ALBUTEROL/IPRATROPIUM (NEB) 3 ML AMP HHN ×2 (12:00→14:00)
[2018-08-15] MEDS: LIDOCAINE 1% (MPF) 5 ML VIAL SC ×2 (12:00→17:02)
[2018-08-15] MEDS: NORepinephrine 8MG/250 ML (PMX 250 ML IV (12:37)
[2018-08-15 13:49] LABS: ADD UMIC YES; UR ASCORBIC ACID NEGATIVE (NEGATIVE); UR BACTERIA FEW /HPF (NONE SEEN); UR BILIRUBIN (Dip) NEGATIVE (NEGATIVE); UR BLOOD (Dip) 3+ mg/dL (NEGATIVE); UR CLARITY CLOUDY (CLEAR); UR COLOR YELLOW (YELLOW); UR GLUCOSE (Dip) NEGATIVE (NEGATIVE); UR KETONES (Dip) 1+ mg/dL (NEGATIVE); UR LEUKOCYTE ESTERASE (Dip) 3+ Leu/ul (NEGATIVE); UR NITRITE (Dip) POSITIVE (NEGATIVE); UR RBC 36 /HPF (0-5); UR SPECIFIC GRAVITY (Dip) 1.011 (1.003-1.030); UR TOTAL PROTEIN (Dip) NEGATIVE (NEGATIVE); UR UROBILINOGEN (Dip) NEGATIVE (NEGATIVE); UR WBC 112 /HPF (0-5)
[2018-08-15 13:59] LABS: LACTIC ACID 1.7 mmol/L (0.5-2.0)
[2018-08-15 14:08] LABS: AMMONIA < 9 umol/l (9-30)
[2018-08-15] MEDS ORDERED: DOPamine-D5W 1.6 MG/ML 250 ML (14:18)
[2018-08-15] MEDS: ALBUTEROL/IPRATROPIUM (NEB) 3 ML AMP HHN ×2 (16:17→19:50)
[2018-08-15] MEDS: ATORVASTATIN 40 MG TAB PO (20:57)
[2018-08-15] MEDS: INSULIN GLARGINE [LANTus] (100 UNITS/ML) SYG SC (20:58)
[2018-08-16] MEDS: ACCU-CHEK XX (02:00)
[2018-08-16] MEDS: PIPER-TAZO 3.375 GM IV (PMX) 100 ML IVPB ×4 (03:07→18:04)
[2018-08-16 05:02] LABS: ADD MAN DIFF? NO
[2018-08-16 05:13] LABS: WHITE BLOOD COUNT 18.5 10^3/ul (4.8-10.8)
[2018-08-16 05:13] LABS: BASOPHILS % 0.1 % (0.0-2.0); HEMATOCRIT 31.8 % (42.0-52.0); HEMOGLOBIN 10.6 g/dl (14.0-18.0); LYMPHOCYTES # 1.1 10^3/ul (0.8-2.9); MEAN CORPUSCULAR HEMOGLOBIN 29.4 pg (29.0-33.0); MEAN CORPUSCULAR HGB CONC 33.3 g/dl (32.0-37.0); MEAN CORPUSCULAR VOLUME 88.1 fl (82.0-101.0); MEAN PLATELET VOLUME 12.5 fl (7.4-10.4); MONOCYTES % 5.4 % (0.0-11.0); NEUTROPHIL # 16.1 10^3/ul (1.6-7.5); NEUTROPHILS % 86.9 % (39.0-77.0); PLATELET COUNT 162 10^3/UL (140-415); RED BLOOD COUNT 3.61 10^6/ul (4.70-6.10)
[2018-08-16 05:29] LABS: ALANINE AMINOTRANSFERASE 30 IU/L (13-69); ALBUMIN 2.7 g/dl (3.3-4.9); ALBUMIN/GLOBULIN RATIO 0.96; ALKALINE PHOSPHATASE 83 IU/L (42-121); ANION GAP 6 (5-13); ASPARTATE AMINO TRANSFERASE 31 IU/L (15-46); BILIRUBIN,INDIRECT 1.1 mg/dl (0-1.1); BILIRUBIN,TOTAL 1.1 mg/dl (0.2-1.3); BLOOD UREA NITROGEN 14 mg/dl (7-20); CALCIUM 7.9 mg/dl (8.4-10.2); CARBON DIOXIDE 25 mmol/L (21-31); CHLORIDE 110 mmol/L (97-110); CREATININE 0.65 mg/dl (0.61-1.24); Estimated GFR > 60 mL/min (>60); GLUCOSE 212 mg/dl (70-220); POTASSIUM 3.7 mmol/L (3.5-5.1); SODIUM 141 mmol/L (135-144); TOTAL PROTEIN 5.5 g/dl (6.1-8.1)
[2018-08-16 05:32] LABS: MAGNESIUM 1.7 mg/dl (1.7-2.5)
[2018-08-16] MEDS: ALBUTEROL/IPRATROPIUM (NEB) 3 ML AMP HHN ×3 (08:09→20:25)
[2018-08-16] MEDS: INSULIN ASPART [NOVOLOG] 3 ML PEN SC ×7 (08:59→20:01)
[2018-08-16] MEDS: POTASSIUM CHLORIDE 20 MEQ POWDER FOR ORAL SOLN PO (09:16)
[2018-08-16] MEDS: HEPARIN 5,000 UNIT/1 ML VIAL SC ×2 (09:16→20:58)
[2018-08-16] MEDS: BACLOFEN 10 MG TAB PO ×2 (09:16→20:59)
[2018-08-16] MEDS: PRAMIPEXOLE 1 MG TAB PO ×3 (09:22→21:00)
[2018-08-16] MEDS: GABAPENTIN 100 MG CAP PO ×3 (09:24→20:59)
[2018-08-16] MEDS: INSULIN GLARGINE [LANTus] (100 UNITS/ML) SYG SC (19:59)
[2018-08-16] MEDS: ATORVASTATIN 40 MG TAB PO (20:59)
[2018-08-16] MEDS: SOD CHLORIDE 0.9% 1,000 ML IV (20:59)
[2018-08-17] MEDS: PIPER-TAZO 3.375 GM IV (PMX) 100 ML IVPB ×4 (01:13→17:27)
[2018-08-17] MEDS: clonAZEPAM 0.5 MG TAB PO ×2 (01:37→20:28)
[2018-08-17] MEDS: ACCU-CHEK XX (02:00)
[2018-08-17 04:56] LABS: ADD MAN DIFF? NO
[2018-08-17 05:11] LABS: BASOPHILS % 0.1 % (0.0-2.0); EOSINOPHILS % 0.3 % (0.0-7.0); HEMATOCRIT 29.6 % (42.0-52.0); HEMOGLOBIN 9.7 g/dl (14.0-18.0); LYMPHOCYTES # 1.3 10^3/ul (0.8-2.9); LYMPHOCYTES % 9.2 % (15.0-51.0); MEAN CORPUSCULAR HGB CONC 32.8 g/dl (32.0-37.0); MEAN CORPUSCULAR VOLUME 88.4 fl (82.0-101.0); MEAN PLATELET VOLUME 12.7 fl (7.4-10.4); MONOCYTE # 0.8 10^3/ul (0.3-0.9); MONOCYTES % 5.7 % (0.0-11.0); NEUTROPHIL # 11.5 10^3/ul (1.6-7.5); PLATELET COUNT 143 10^3/UL (140-415); RED BLOOD COUNT 3.35 10^6/ul (4.70-6.10); RED CELL DISTRIBUTION WIDTH 15.4 % (11.5-14.5)
[2018-08-17 05:11] LABS: WHITE BLOOD COUNT 13.7 10^3/ul (4.8-10.8)
[2018-08-17 05:35] LABS: ANION GAP 5 (5-13); BLOOD UREA NITROGEN 9 mg/dl (7-20); CALCIUM 7.6 mg/dl (8.4-10.2); CARBON DIOXIDE 26 mmol/L (21-31); CHLORIDE 109 mmol/L (97-110); CREATININE 0.52 mg/dl (0.61-1.24); Estimated GFR > 60 mL/min (>60); GLUCOSE 131 mg/dl (70-220); MAGNESIUM 1.6 mg/dl (1.7-2.5); PHOSPHORUS 2.1 mg/dl (2.5-4.9); POTASSIUM 3.6 mmol/L (3.5-5.1); SODIUM 140 mmol/L (135-144)
[2018-08-17] MEDS: INSULIN ASPART [NOVOLOG] 3 ML PEN SC ×7 (08:03→20:35)
[2018-08-17] MEDS: HEPARIN 5,000 UNIT/1 ML VIAL SC ×2 (08:09→20:32)
[2018-08-17] MEDS: BACLOFEN 10 MG TAB PO ×2 (08:10→20:27)
[2018-08-17] MEDS: GABAPENTIN 100 MG CAP PO ×3 (08:10→20:27)
[2018-08-17] MEDS: PRAMIPEXOLE 1 MG TAB PO ×3 (08:24→20:27)
[2018-08-17] MEDS: ALBUTEROL/IPRATROPIUM (NEB) 3 ML AMP HHN ×3 (08:58→19:47)
[2018-08-17] MEDS: SOD CHLORIDE 0.9% 1,000 ML IV (12:56)
[2018-08-17] MEDS: MIDODRINE 5 MG TAB PO ×2 (16:25→17:27)
[2018-08-17] MEDS: ATORVASTATIN 40 MG TAB PO (20:27)
[2018-08-17] MEDS: INSULIN GLARGINE [LANTus] (100 UNITS/ML) SYG SC (20:34)
[2018-08-18] MEDS: PIPER-TAZO 3.375 GM IV (PMX) 100 ML IVPB ×4 (00:40→17:12)
[2018-08-18] MEDS: ACCU-CHEK XX (02:00)
[2018-08-18] MEDS: SOD CHLORIDE 0.9% 1,000 ML IV (03:49)
[2018-08-18 04:39] LABS: ADD MAN DIFF? NO
[2018-08-18 04:42] LABS: BASOPHILS % 0.1 % (0.0-2.0); EOSINOPHILS % 0.3 % (0.0-7.0); HEMATOCRIT 28.3 % (42.0-52.0); HEMOGLOBIN 9.2 g/dl (14.0-18.0); LYMPHOCYTES # 1.2 10^3/ul (0.8-2.9); LYMPHOCYTES % 8.6 % (15.0-51.0); MEAN CORPUSCULAR HEMOGLOBIN 29.2 pg (29.0-33.0); MEAN CORPUSCULAR HGB CONC 32.5 g/dl (32.0-37.0); MEAN CORPUSCULAR VOLUME 89.8 fl (82.0-101.0); MEAN PLATELET VOLUME 12.6 fl (7.4-10.4); MONOCYTE # 0.8 10^3/ul (0.3-0.9); MONOCYTES % 5.9 % (0.0-11.0); NEUTROPHIL # 11.5 10^3/ul (1.6-7.5); NEUTROPHILS % 84.7 % (39.0-77.0); PLATELET COUNT 141 10^3/UL (140-415); RED BLOOD COUNT 3.15 10^6/ul (4.70-6.10); RED CELL DISTRIBUTION WIDTH 15.6 % (11.5-14.5)
[2018-08-18 04:42] LABS: WHITE BLOOD COUNT 13.6 10^3/ul (4.8-10.8)
[2018-08-18 05:06] LABS: ANION GAP 5 (5-13); BLOOD UREA NITROGEN 9 mg/dl (7-20); CALCIUM 8.1 mg/dl (8.4-10.2); CARBON DIOXIDE 27 mmol/L (21-31); CHLORIDE 107 mmol/L (97-110); CREATININE 0.63 mg/dl (0.61-1.24); Estimated GFR > 60 mL/min (>60); MAGNESIUM 1.5 mg/dl (1.7-2.5); PHOSPHORUS 3.2 mg/dl (2.5-4.9); POTASSIUM 3.6 mmol/L (3.5-5.1); SODIUM 139 mmol/L (135-144)
[2018-08-18 05:09] LABS: GLUCOSE 76 mg/dl (70-220)
[2018-08-18] MEDS: INSULIN ASPART [NOVOLOG] 3 ML PEN SC ×7 (07:35→20:21)
[2018-08-18] MEDS: ALBUTEROL/IPRATROPIUM (NEB) 3 ML AMP HHN ×3 (08:20→19:34)
[2018-08-18] MEDS: MIDODRINE 5 MG TAB PO ×3 (08:46→17:13)
[2018-08-18] MEDS: PRAMIPEXOLE 1 MG TAB PO ×3 (08:46→20:21)
[2018-08-18] MEDS: BACLOFEN 10 MG TAB PO ×2 (08:46→20:21)
[2018-08-18] MEDS: HEPARIN 5,000 UNIT/1 ML VIAL SC ×2 (08:47→20:23)
[2018-08-18] MEDS: GABAPENTIN 100 MG CAP PO ×3 (08:47→20:21)
[2018-08-18] MEDS: MAGNESIUM SULFATE 2 GM/50 ML 50 ML IVPB (11:49)
[2018-08-18] MEDS: ATORVASTATIN 40 MG TAB PO (20:21)
[2018-08-18] MEDS: INSULIN GLARGINE [LANTus] (100 UNITS/ML) SYG SC (20:22)
[2018-08-19] MEDS: PIPER-TAZO 3.375 GM IV (PMX) 100 ML IVPB ×4 (00:22→19:27)
[2018-08-19] MEDS: ACCU-CHEK XX (01:59)
[2018-08-19 05:11] LABS: ADD MAN DIFF? NO
[2018-08-19 05:21] LABS: WHITE BLOOD COUNT 13.2 10^3/ul (4.8-10.8)
[2018-08-19 05:21] LABS: BASOPHILS % 0.2 % (0.0-2.0); EOSINOPHILS # 0.1 10^3/ul (0.0-0.5); EOSINOPHILS % 0.8 % (0.0-7.0); HEMOGLOBIN 9.1 g/dl (14.0-18.0); LYMPHOCYTES # 1.3 10^3/ul (0.8-2.9); LYMPHOCYTES % 9.6 % (15.0-51.0); MEAN CORPUSCULAR HEMOGLOBIN 29.1 pg (29.0-33.0); MEAN CORPUSCULAR HGB CONC 32.5 g/dl (32.0-37.0); MEAN CORPUSCULAR VOLUME 89.5 fl (82.0-101.0); MEAN PLATELET VOLUME 12.4 fl (7.4-10.4); MONOCYTE # 0.8 10^3/ul (0.3-0.9); MONOCYTES % 6.1 % (0.0-11.0); NEUTROPHILS % 82.8 % (39.0-77.0); PLATELET COUNT 145 10^3/UL (140-415); RED BLOOD COUNT 3.13 10^6/ul (4.70-6.10); RED CELL DISTRIBUTION WIDTH 15.5 % (11.5-14.5)
[2018-08-19 05:52] LABS: ANION GAP 6 (5-13); BLOOD UREA NITROGEN 12 mg/dl (7-20); CARBON DIOXIDE 27 mmol/L (21-31); CHLORIDE 106 mmol/L (97-110); Estimated GFR > 60 mL/min (>60); GLUCOSE 85 mg/dl (70-220); MAGNESIUM 1.9 mg/dl (1.7-2.5); POTASSIUM 3.9 mmol/L (3.5-5.1); SODIUM 139 mmol/L (135-144)
[2018-08-19] MEDS: INSULIN ASPART [NOVOLOG] 3 ML PEN SC ×7 (07:35→20:14)
[2018-08-19] MEDS: ALBUTEROL/IPRATROPIUM (NEB) 3 ML AMP HHN ×3 (08:00→20:08)
[2018-08-19] MEDS: PRAMIPEXOLE 1 MG TAB PO ×3 (09:46→20:12)
[2018-08-19] MEDS: BACLOFEN 10 MG TAB PO ×2 (09:47→20:13)
[2018-08-19] MEDS: MIDODRINE 5 MG TAB PO ×3 (09:47→17:00)
[2018-08-19] MEDS: GABAPENTIN 100 MG CAP PO ×3 (09:47→20:13)
[2018-08-19] MEDS: HEPARIN 5,000 UNIT/1 ML VIAL SC ×2 (09:48→20:13)
[2018-08-19] MEDS: INSULIN GLARGINE [LANTus] (100 UNITS/ML) SYG SC (19:57)
[2018-08-19] MEDS: ATORVASTATIN 40 MG TAB PO (20:12)
[2018-08-20] MEDS: PIPER-TAZO 3.375 GM IV (PMX) 100 ML IVPB ×4 (00:25→17:18)
[2018-08-20] MEDS: ACCU-CHEK XX (02:00)
[2018-08-20 06:58] LABS: ADD MAN DIFF? NO
[2018-08-20 07:01] LABS: WHITE BLOOD COUNT 6.9 10^3/ul (4.8-10.8)
[2018-08-20 07:01] LABS: BASOPHILS % 0.1 % (0.0-2.0); EOSINOPHILS # 0.1 10^3/ul (0.0-0.5); EOSINOPHILS % 1.6 % (0.0-7.0); HEMATOCRIT 29.9 % (42.0-52.0); HEMOGLOBIN 9.6 g/dl (14.0-18.0); LYMPHOCYTES # 1.2 10^3/ul (0.8-2.9); MEAN CORPUSCULAR HGB CONC 32.1 g/dl (32.0-37.0); MEAN CORPUSCULAR VOLUME 90.3 fl (82.0-101.0); MEAN PLATELET VOLUME 11.7 fl (7.4-10.4); MONOCYTE # 0.6 10^3/ul (0.3-0.9); MONOCYTES % 7.9 % (0.0-11.0); NEUTROPHILS % 72.5 % (39.0-77.0); PLATELET COUNT 207 10^3/UL (140-415); RED BLOOD COUNT 3.31 10^6/ul (4.70-6.10); RED CELL DISTRIBUTION WIDTH 15.2 % (11.5-14.5)
[2018-08-20 07:37] LABS: ANION GAP 3 (5-13); BLOOD UREA NITROGEN 10 mg/dl (7-20); CALCIUM 8.2 mg/dl (8.4-10.2); CARBON DIOXIDE 28 mmol/L (21-31); CHLORIDE 109 mmol/L (97-110); CREATININE 0.63 mg/dl (0.61-1.24); Estimated GFR > 60 mL/min (>60); GLUCOSE 115 mg/dl (70-220); POTASSIUM 3.7 mmol/L (3.5-5.1); SODIUM 140 mmol/L (135-144)
[2018-08-20] MEDS: INSULIN ASPART [NOVOLOG] 3 ML PEN SC ×7 (07:50→20:41)
[2018-08-20] MEDS: ALBUTEROL/IPRATROPIUM (NEB) 3 ML AMP HHN ×3 (08:17→20:08)
[2018-08-20] MEDS: GABAPENTIN 100 MG CAP PO ×3 (09:13→20:41)
[2018-08-20] MEDS: BACLOFEN 10 MG TAB PO ×2 (09:13→20:41)
[2018-08-20] MEDS: PRAMIPEXOLE 1 MG TAB PO ×3 (09:13→20:41)
[2018-08-20] MEDS: MIDODRINE 5 MG TAB PO ×3 (09:14→17:12)
[2018-08-20] MEDS: HEPARIN 5,000 UNIT/1 ML VIAL SC ×2 (09:22→20:40)
[2018-08-20] MEDS: FUROSEMIDE 20 MG INJ IV (11:00)
[2018-08-20] MEDS: ATORVASTATIN 40 MG TAB PO (20:40)
[2018-08-20] MEDS: INSULIN GLARGINE [LANTus] (100 UNITS/ML) SYG SC (20:40)
[2018-08-20] MEDS: ARTIFICIAL TEARS 15 ML OPH BOTH EYES (21:06)
[2018-08-21] MEDS: PIPER-TAZO 3.375 GM IV (PMX) 100 ML IVPB ×3 (00:13→12:21)
[2018-08-21] MEDS: ACCU-CHEK XX (03:00)
[2018-08-21] MEDS: BISACODYL (EC) 5 MG TAB PO (06:02)
[2018-08-21 06:48] LABS: ADD MAN DIFF? NO
[2018-08-21 06:52] LABS: WHITE BLOOD COUNT 5.6 10^3/ul (4.8-10.8)
[2018-08-21 06:52] LABS: BASOPHILS % 0.4 % (0.0-2.0); EOSINOPHILS # 0.1 10^3/ul (0.0-0.5); EOSINOPHILS % 2.5 % (0.0-7.0); HEMATOCRIT 32.8 % (42.0-52.0); HEMOGLOBIN 10.5 g/dl (14.0-18.0); LYMPHOCYTES # 1.3 10^3/ul (0.8-2.9); LYMPHOCYTES % 23.8 % (15.0-51.0); MEAN CORPUSCULAR HEMOGLOBIN 29.1 pg (29.0-33.0); MEAN CORPUSCULAR VOLUME 90.9 fl (82.0-101.0); MEAN PLATELET VOLUME 11.2 fl (7.4-10.4); MONOCYTE # 0.4 10^3/ul (0.3-0.9); MONOCYTES % 7.7 % (0.0-11.0); NEUTROPHIL # 3.6 10^3/ul (1.6-7.5); NEUTROPHILS % 64.5 % (39.0-77.0); PLATELET COUNT 255 10^3/UL (140-415); RED BLOOD COUNT 3.61 10^6/ul (4.70-6.10); RED CELL DISTRIBUTION WIDTH 15.2 % (11.5-14.5)
[2018-08-21 07:12] LABS: ANION GAP 5 (5-13); BLOOD UREA NITROGEN 12 mg/dl (7-20); CALCIUM 8.8 mg/dl (8.4-10.2); CARBON DIOXIDE 27 mmol/L (21-31); CHLORIDE 108 mmol/L (97-110); CREATININE 0.65 mg/dl (0.61-1.24); Estimated GFR > 60 mL/min (>60); GLUCOSE 113 mg/dl (70-220); POTASSIUM 3.9 mmol/L (3.5-5.1); SODIUM 140 mmol/L (135-144)
[2018-08-21] MEDS: ALBUTEROL/IPRATROPIUM (NEB) 3 ML AMP HHN (07:34)
[2018-08-21] MEDS: INSULIN ASPART [NOVOLOG] 3 ML PEN SC ×4 (07:55→12:10)
[2018-08-21] MEDS: BACLOFEN 10 MG TAB PO (08:34)
[2018-08-21] MEDS: PRAMIPEXOLE 1 MG TAB PO (08:34)
[2018-08-21] MEDS: GABAPENTIN 100 MG CAP PO (08:34)
[2018-08-21] MEDS: MIDODRINE 5 MG TAB PO (08:34)
[2018-08-21] MEDS: HEPARIN 5,000 UNIT/1 ML VIAL SC (08:40)
== END 2018-08-21 13:15 | DRG 28 ==
LOC: TEL 08-19 20:48 → E/R 04:20 → ICU 08-12 19:57 → 6WM 08-14 17:22 → ICU 06:00 → 6WM 20:09
PROVIDERS: Internal Medicine
PROC: 00NW0ZZ Release Cervical Spinal Cord, Open Approach (ICD-10-PCS; principal; 2018-08-12 15:23)
PROC: 4A11X4G Monitoring of Peripheral Nervous Electrical Activity, Intraoperative, External Approach (ICD-10-PCS; 2018-08-12 15:23)
PROC: 02HV33Z Insertion of Infusion Device into Superior Vena Cava, Percutaneous Approach (ICD-10-PCS; 2018-08-12 15:23)
DX: G95.29 Other cord compression (principal); A41.9 Sepsis, unspecified organism; R65.21 Severe sepsis with septic shock; G92 Toxic encephalopathy; M47.12 Other spondylosis with myelopathy, cervical region; I50.32 Chronic diastolic (congestive) heart failure; M62.82 Rhabdomyolysis; I69.351 Hemiplegia and hemiparesis following cerebral infarction affecting right dominant side; N39.0 Urinary tract infection, site not specified; B96.5 Pseudomonas (aeruginosa) (mallei) (pseudomallei) as the cause of diseases classified elsewhere; B95.2 Enterococcus as the cause of diseases classified elsewhere; M48.02 Spinal stenosis, cervical region; M40.202 Unspecified kyphosis, cervical region; M62.50 Muscle wasting and atrophy, not elsewhere classified, unspecified site; E83.42 Hypomagnesemia; E11.9 Type 2 diabetes mellitus without complications; E78.5 Hyperlipidemia, unspecified; G81.94 Hemiplegia, unspecified affecting left nondominant side; G20 Parkinson's disease; I11.0 Hypertensive heart disease with heart failure; I95.9 Hypotension, unspecified; R33.9 Retention of urine, unspecified; R00.1 Bradycardia, unspecified; T50.905A Adverse effect of unspecified drugs, medicaments and biological substances, initial encounter; Z91.81 History of falling; Z79.84 Long term (current) use of oral hypoglycemic drugs; Z79.02 Long term (current) use of antithrombotics/antiplatelets
CPT/HCPCS: 36415; 36569; 36600; 70450; 70551; 71045; 72040; 72050; 72052; 72125; 72142; 72156; 72170; 76937; 80048; 80053; 80061; 80307; 81001; 81003; 82140; 82533; 82550; 82553; 82803; 82962; 83036; 83605; 83690; 83735; 84100; 84484; 85025; 85610; 85730; 87040-91; 87081; 87086; 92526; 92610; 93005; 93306; 94640; 94664; 97110; 97163; 97164; 97167; 97530; 99285-25